=== PATIENT | male | born 1960 | race Caucasian/White ===

== ENCOUNTER 2020-08-18 13:49 | Emergency (ER) | payer OTHER ==
[2020-08-18 14:44] LABS: HEMOGLOBIN 14.9 gm/dl (14.0-17.5); RED BLOOD COUNT 4.82 M/UL (4.20-5.50); WHITE BLOOD COUNT 20.9 K/UL (4.5-11.0)
[2020-08-18 15:09] LABS: BUN/CREATININE RATIO 16 (0-10)
[2020-08-18] MEDS ORDERED: AUGMENTIN 875-1 EACH PO (16:44)
[2020-08-18] MEDS ORDERED: ZOFRAN4 MG PO (16:44)
== END 2020-08-18 17:06 | disposition home or self-care (01) ==
LOC: ER1 13:49
PROVIDERS: Physician Assistant
DX: K57.32 Diverticulitis of large intestine without perforation or abscess without bleeding (principal); I10 Essential (primary) hypertension; F17.210 Nicotine dependence, cigarettes, uncomplicated
CPT/HCPCS: 80053; 81001; 82550; 82553; 83605; 83690; 83874; 84484; 85025; 96374; 99284; J2405; Q9967

== ENCOUNTER → 2021-04-19 | Outpatient (CLI) | payer OTHER ==
[~2021-04-19] MED LIST: AUGMENTIN 875-1 EACH PO; ZOFRAN4 MG PO
== END ==
LOC: MRI 15:29
DX: M96.1 Postlaminectomy syndrome, not elsewhere classified (principal); M51.37 Other intervertebral disc degeneration, lumbosacral region
CPT/HCPCS: 72148

== ENCOUNTER → 2021-07-03 | Outpatient (CLI) | payer OTHER | LOC: RAD 10:03 | DX: F17.200 Nicotine dependence, unspecified, uncomplicated (principal) | CPT/HCPCS: 71046 ==